=== PATIENT | male | born 1950 | race Caucasian/White ===

== ENCOUNTER 2018-08-28 13:45 | Emergency (ER) | payer MEDICARE ==
[~2018-08-28] VITALS: Ht 157.5 cm; Wt 63.0 kg
[~2018-08-28 13:45] MED LIST: AMLO10TA80 PO
[2018-08-28] MEDS ORDERED: ASPI-1159 PO (14:17)
[2018-08-28] MEDS ORDERED: LISI10TA5 PO (14:17)
[2018-08-28 16:01] VITALS: BP 152/59
== END 2018-08-28 16:21 | disposition home or self-care (01) ==
LOC: ER 13:45
DX: I10 Essential (primary) hypertension (principal); Z86.73 Personal history of transient ischemic attack (TIA), and cerebral infarction without residual deficits; Z88.6 Allergy status to analgesic agent; Z79.82 Long term (current) use of aspirin
CPT/HCPCS: 99283

== ENCOUNTER 2025-08-06 16:56 | Emergency (ER) | payer MEDICARE ==
[~2025-08-06] VITALS: Ht 162.6 cm; Wt 64.0 kg
[~2025-08-06 16:56] MED LIST changes: -AMLO10TA80 PO; +ASPI-1497 PO; +LISI10TA26 PO
[2025-08-06 17:34] VITALS: O2SAT 99
[2025-08-06] MEDS: LIDOCAINE HCL 1% 20ML VIAL INFIL ONE (21:52)
[2025-08-06] MEDS: TETANUS, DIPHTHERIA, PERTUSSIS VAC/PF 0.5ML (>10YR OLD) IM ONE (21:55)
[2025-08-06] MEDS: ACETAMINOPHEN 500MG TABLET PO ONE (21:55)
[2025-08-06] MEDS: BACITRACIN ZINC OINT UDPKT TOP ONE (21:56)
[2025-08-06] MEDS ORDERED: ACET-2708 MT (23:11)
[2025-08-06] MEDS ORDERED: BO1 TP (23:11)
[2025-08-06 23:32] VITALS: BP 171/61; PULSE 61; RESP 16; TEMP 36.7; O2SAT 100
== END 2025-08-06 23:32 | disposition home or self-care (01) ==
LOC: ER 16:56
DX: S01.111A Laceration without foreign body of right eyelid and periocular area, initial encounter (principal); I10 Essential (primary) hypertension; R51.9 Headache, unspecified; Z86.73 Personal history of transient ischemic attack (TIA), and cerebral infarction without residual deficits; Z88.6 Allergy status to analgesic agent; Y08.89XA Assault by other specified means, initial encounter; Y93.89 Activity, other specified; Y92.89 Other specified places as the place of occurrence of the external cause; Y99.8 Other external cause status
CPT/HCPCS: 99285; 70450; 70486; 90715; 12013; 90471; J2003

== ENCOUNTER 2025-08-09 20:05 | Emergency (ER) | payer MEDICARE ==
[~2025-08-09] VITALS: Ht 162.6 cm; Wt 71.0 kg
[~2025-08-09 20:05] MED LIST changes: +ACET-2708 MT; +BO1 TP
[2025-08-09 20:14] VITALS: O2SAT 100
[2025-08-09 21:47] VITALS: BP 168/76; PULSE 84; RESP 18; TEMP 36.7; O2SAT 100
== END 2025-08-09 21:50 | disposition home or self-care (01) ==
LOC: ER 20:05
DX: S01.81XD Laceration without foreign body of other part of head, subsequent encounter (principal); X58.XXXD Exposure to other specified factors, subsequent encounter
CPT/HCPCS: 99281

== ENCOUNTER 2025-08-13 07:29 | Emergency (ER) | payer MEDICARE ==
[~2025-08-13] VITALS: Ht 165.1 cm; Wt 73.0 kg
[2025-08-13 07:46] VITALS: O2SAT 100
[2025-08-13 08:27] VITALS: BP 190/70; PULSE 91; RESP 16; TEMP 36.8; O2SAT 100
== END 2025-08-13 08:35 | disposition home or self-care (01) ==
LOC: ER 07:29
DX: S51.011D Laceration without foreign body of right elbow, subsequent encounter (principal); I10 Essential (primary) hypertension; Z88.6 Allergy status to analgesic agent; X58.XXXD Exposure to other specified factors, subsequent encounter
CPT/HCPCS: 99281; 99282